=== PATIENT | female | born 1980 | race African-American/Black ===

== ENCOUNTER 2017-11-25 15:28 | Observation (INO) | payer MEDICAID ==
[~2017-11-25] VITALS: Ht 180.3 cm; Wt 122.5 kg
[2017-11-25] MEDS ORDERED: BETAMETHASONE ACET/BETAMET 30 MG/5 ML VIAL IM NR (16:15)
[2017-11-25] MEDS ORDERED: AMLODIPINE 10MG TABLET PO NR (17:00)
[2017-11-25 17:18] LABS: CLARITY URINE CLOUDY (CLEAR); COLOR URINE DARK YELLOW (YELLOW); KETONES URINE TRACE (NEGATIVE); LEUKOCYTE ESTERASE URINE NEGATIVE (NEGATIVE); NITRITE URINE NEGATIVE (NEGATIVE); OCCULT BLOOD URINE NEGATIVE (NEGATIVE); PH URINE 5.5 (4.5-8.0); PROTEIN URINE TRACE (NEGATIVE); SPECIFIC GRAVITY URINE 1.034 (1.005-1.030); UROBILINOGEN URINE 0.2 E.U./dL (0.2-1.0)
[2017-11-25] MEDS ORDERED: ENOXAPARIN 40MG/0.4ML SYR SUBCUT NR (17:30)
[2017-11-25] MEDS ORDERED: AMLO10TA4 PO (17:37)
[2017-11-25] MEDS ORDERED: LOV40 SQ (17:37)
[2017-11-25] MEDS ORDERED: PREN1TAB87 PO (17:37)
== END 2017-11-25 18:00 | disposition home or self-care (01) ==
LOC: L&D 15:28
PROVIDERS: ADMIT Obstetrics & Gynecology; ATTEND Obstetrics & Gynecology
DX: O26.893 Other specified pregnancy related conditions, third trimester (principal); N89.8 Other specified noninflammatory disorders of vagina; Z3A.28 28 weeks gestation of pregnancy
CPT/HCPCS: 76815; 76818; 81003; 87086; 96372; 99281; G0378; J0702; J1650

== ENCOUNTER 2017-11-26 16:14 | Observation (INO) | payer MEDICAID ==
[~2017-11-26] VITALS: Ht 180.3 cm; Wt 122.5 kg
[~2017-11-26 16:14] MED LIST: AMLO10TA4 PO; LOV40 SQ; PREN1TAB87 PO
[2017-11-26] MEDS ORDERED: BETAMETHASONE ACET/BETAMET 30 MG/5 ML VIAL IM ONE (16:30)
== END 2017-11-26 17:00 | disposition home or self-care (01) ==
LOC: L&D 16:14
PROVIDERS: ADMIT Acupuncturist; ATTEND Acupuncturist
DX: O26.893 Other specified pregnancy related conditions, third trimester (principal); N89.8 Other specified noninflammatory disorders of vagina; Z3A.28 28 weeks gestation of pregnancy
CPT/HCPCS: 96372; G0378